=== PATIENT | male | born 1940 | race Caucasian/White ===

== ENCOUNTER 2017-01-08 01:22 | Emergency (ER) | payer MEDICARE ==
[~2017-01-08] VITALS: Ht 182.9 cm; Wt 95.6 kg
[2017-01-08 01:24] VITALS: BP 145/79
[2017-01-08 02:24] LABS: PATH.CAST-FLAG NOT PRESENT; SPERM-FLAG NOT PRESENT; SRC-FLAG NOT PRESENT; XTAL-FLAG NOT PRESENT; YLC-FLAG NOT PRESENT
[2017-01-08] MEDS ORDERED: FURO20TA3 PO (02:30)
[2017-01-08] MEDS ORDERED: METO50TA82 PO (02:31)
[2017-01-08] MEDS ORDERED: ASPI-515 PO (02:32)
[2017-01-08] MEDS ORDERED: SIMV20TA3 PO (02:32)
[2017-01-08] MEDS ORDERED: POTA10TA57 PO (02:32)
[2017-01-08] MEDS ORDERED: LISI-170 PO (02:32)
[2017-01-08 03:00] LABS: BLOOD UREA NITROGEN 21 mg/dL (7-18)
[2017-01-08 03:06] LABS: IS PT STATUS REG ER OR PRE ER? YES
[2017-01-08] MEDS ORDERED: FUROSEMIDE 40 MG TABLET PO ONE (03:25)
[2017-01-08] MEDS ORDERED: CIPROFLOXACIN 500 MG TABLET PO ONE (03:30)
[2017-01-08] MEDS ORDERED: CIPROFLOXACIN 500 MG TABLET ONE (03:40)
== END 2017-01-08 04:03 | disposition home or self-care (01) ==
LOC: ED 03:57
DX: N30.01 Acute cystitis with hematuria (principal); I11.0 Hypertensive heart disease with heart failure; I50.31 Acute diastolic (congestive) heart failure; I25.2 Old myocardial infarction; Z85.46 Personal history of malignant neoplasm of prostate
CPT/HCPCS: 36415; 71010; 80048; 81001; 82040; 84484; 85025; 93005